=== PATIENT | female | born 1970 | race Two or more races ===

== ENCOUNTER 2021-04-13 22:06 | Emergency (ER) | payer SELFPAY ==
[2021-04-13] MEDS ORDERED: Sodium Chloride 0.9% 10 ML Syringe FLUSH PRN (22:58)
[2021-04-13] MEDS ORDERED: Ondansetron 4 MG/2 ML SDV IVPUSH ONE (22:58)
[2021-04-13] MEDS ORDERED: HYDROmorphone 0.5 MG/0.5 ML Syringe IVPUSH ONE (22:59)
[2021-04-13] MEDS ORDERED: Sodium Chloride 0.9% 1,000 ML IV SCH (23:00)
--- NOTE | 2021-04-14 00:55 | EDM.PDOC ---
ED HPI GENERAL MEDICAL PROBLEM - General Chief Complaint: Flank Pain Stated Complaint: LEFT SIDE PAIN/THROWING UP Time Seen by Provider: 04/13/21 22:40 Source of Information: Reports: Patient History Limitations: Reports: No Limitations - History of Present Illness INITIAL COMMENTS - FREE TEXT/NARRATIVE: The patient presents with left flank, abdominal pain, nausea and vomiting. This started about 7:30pm tonight. She has no history of kidney stones. She has no fever, chills, cough, chest pain, shortness of breath, dysuria, hematuria or diarrhea. She still has her appendix and gallbladder. Onset: Sudden Duration: Hour(s): Location: Reports: Abdomen, Back Quality: Reports: Sharp Severity: Severe Improves with: Reports: None Worsens with: Reports: None Associated Symptoms: Reports: Nausea/Vomiting. Denies: Chest Pain, Cough, Fever/Chills, Headaches, Shortness of Breath Left Flank Pain Score (Numeric/FACES): 7 - Related Data Allergies Allergy/AdvReac Type Severity Reaction Status Date / Time amoxicillin Allergy Airway Verified 04/13/21 22:35 Tightness Penicillins Allergy Swelling Verified 04/13/21 22:35 Home Meds: Home Meds Fluticasone Furoate [Arnuity Ellipta] 50 mcg IH ASDIRECTED 04/13/21 [History] Fluticasone/Vilanterol [Breo Ellipta 100-25 MCG Inhalation Kit] 1 each IH ASDIRECTED 04/13/21 [History] Loratadine [Claritin] 10 mg PO DAILY 04/13/21 [History] Meloxicam 75 mg PO DAILY 04/13/21 [History] estradioL [Estradiol] 1 tab PO DAILY 04/13/21 [History] lisinopriL [Lisinopril] 20 mg PO DAILY 04/13/21 [History] metFORMIN [Glucophage] 1,000 mg PO BIDMEALS 04/13/21 [History] traMADol [Ultram] 50 mg PO Q6H PRN 04/13/21 [History] Past Medical History HEENT History: Reports: None Cardiovascular History: Reports: Hypertension Respiratory History: Reports: Asthma Gastrointestinal History: Reports: Chronic Constipation Genitourinary History: Reports: None [employer]ESS[employer]MINISTRATION History: Reports: None Musculoskeletal History: Reports: Back Pain, Chronic Neurological History: Reports: None Psychiatric History: Reports: None Endocrine/Metabolic History: Reports: Diabetes, Type II Hematologic History: Reports: None Immunologic History: Reports: None Oncologic (Cancer) History: Reports: None Dermatologic History: Reports: None - Infectious Disease History Infectious Disease History: Reports: None - Past Surgical History HEENT Surgical History: Reports: None Social & Family History - Family History Family Medical History: No Pertinent Family History - Tobacco Use Tobacco Use Status *Q: Never Tobacco User - Caffeine Use Caffeine Use: Reports: Coffee, Soda - Recreational Drug Use Recreational Drug Use: No ED ROS GENERAL - Review of Systems Review Of Systems: See Below Constitutional: Reports: No Symptoms HEENT: Reports: No Symptoms Respiratory: Reports: No Symptoms Cardiovascular: Reports: No Symptoms Endocrine: Reports: No Symptoms GI/Abdominal: Reports: Abdominal Pain, Nausea, Vomiting. Denies: Diarrhea : Reports: No Symptoms Musculoskeletal: Reports: Other (left flank) ED EXAM, GI/ABD - Physical Exam Exam: See Below Exam Limited By: No Limitations General Appearance: Alert, No Apparent Distress Ears: Normal External Exam Nose: Normal Inspection Head: Atraumatic, Normocephalic Neck: Normal Inspection Respiratory/Chest: No Respiratory Distress, Lungs Clear, Normal Breath Sounds Cardiovascular: Regular Rate, Rhythm, No Edema, No Murmur GI/Abdominal Exam: Soft, No Organomegaly, No Mass, Tender (Moderate tenderness to the left flank and left abdomen) Back Exam: CVA Tenderness (L) Extremities: Normal Inspection Course - Vital Signs Last Recorded V/S: Last Vital Signs Temp 97.2 F 04/13/21 22:39 Pulse 99 04/13/21 22:39 Resp 16 04/13/21 22:39 BP 150/92 H 04/13/21 22:39 Pulse Ox 99 04/13/21 22:39 - Orders/Labs/Meds Orders: Active Orders 24 hr Category Date Time Status Peripheral IV Care [RC] . DIRECTED Care 04/13/21 22:58 Active Abdomen Pelvis wo Cont [CT] Stat Exams 04/13/21 22:58 Taken Sodium Chloride 0.9% [Normal Saline] 1,000 ml Med 04/13/21 23:00 Active IV ASDIRECTED Sodium Chloride 0.9% [Saline Flush] Med 04/13/21 22:58 Active 10 ml FLUSH ASDIRECTED PRN ED Antiemetic Medication Reflex [OM.PC] Stat Oth 04/13/21 22:58 Ordered Peripheral IV Insertion Adult [OM.PC] Stat Oth 04/13/21 22:58 Ordered Medication Orders Sodium Chloride (Normal Saline) 1,000 mls @ 125 mls/hr IV ASDIRECTED CATALINA Last Admin: 04/13/21 23:09 Dose: 125 mls/hr Documented by: JUAN Sodium Chloride (Sodium Chloride 0.9% 10 Ml Syringe) 10 ml FLUSH ASDIRECTED PRN PRN Reason: Keep Vein Open Last Admin: 04/13/21 23:11 Dose: 10 ml Documented by: JUAN Labs: Laboratory Tests 04/13/21 04/13/21 04/13/21 Range/Units 23:08 23:08 23:08 WBC 13.33 H (3.98-10.04) K/mm3 RBC 5.00 (3.98-5.22) M/mm3 Hgb 13.3 (11.2-15.7) gm/dl Hct 41.0 (34.1-44.9) % MCV 82.0 (79.4-94.8) fl MCH 26.6 (25.6-32.2) pg MCHC 32.4 (32.2-35.5) g/dl RDW Std Deviation 40.8 (36.4-46.3) fL Plt Count 291 (182-369) K/mm3 MPV 10.3 (9.4-12.3) fl Neut % (Auto) 78.7 H (34.0-71.1) % Lymph % (Auto) 13.5 L (19.3-51.7) % [place] % (Auto) 6.7 (4.7-12.5) % Eos % (Auto) 0.4 L (0.7-5.8) Baso % (Auto) 0.2 (0.1-1.2) % Neut # (Auto) 10.49 H (1.56-6.13) K/mm3 Lymph # (Auto) 1.80 (1.18-3.74) K/mm3 [place] # (Auto) 0.89 H (0.24-0.36) K/mm3 Eos # (Auto) 0.05 (0.04-0.36) K/mm3 Baso # (Auto) 0.03 (0.01-0.08) K/mm3 Sodium 139 (136-145) mEq/L Potassium 3.7 (3.5-5.1) mEq/L Chloride 103 (98-107) mEq/L Carbon Dioxide 26 (21-32) mEq/L Anion Gap 13.7 (5-15) BUN 16 (7-18) mg/dL Creatinine 0.7 (0.55-1.02) mg/dL Est Cr Clr Drug Dosing 83.03 mL/min Estimated GFR (MDRD) > 60 (>60) mL/min BUN/Creatinine Ratio 22.9 H (14-18) Glucose 160 H (70-99) mg/dL Calcium 8.8 (8.5-10.1) mg/dL Total Bilirubin 0.3 (0.2-1.0) mg/dL AST 11 L (15-37) U/L ALT 23 (14-59) U/L Alkaline Phosphatase 120 H (46-116) U/L Total Protein 7.1 (6.4-8.2) g/dl Albumin 3.6 (3.4-5.0) g/dl Globulin 3.5 gm/dL Albumin/Globulin Ratio 1.0 (1-2) Lipase 64 L (73-393) U/L HCG, Qual Negative (NEGATIVE) Urine Color (Yellow) Urine Appearance (Clear) Urine pH (5.0-8.0) Ur Specific [place] (1.005-1.030) Urine Protein (Negative) Urine Glucose (UA) (Negative) Urine Ketones (Negative) Urine Occult Blood (Negative) Urine Nitrite (Negative) Urine Bilirubin (Negative) Urine Urobilinogen (0.2-1.0) Ur Leukocyte Esterase (Negative) Urine RBC (0-5) /hpf Urine WBC (0-5) /hpf Ur Squamous Epith Cells (0-5) /hpf Urine Bacteria (FEW) /hpf Urine Mucus (FEW) /hpf 04/14/21 Range/Units 00:03 WBC (3.98-10.04) K/mm3 RBC (3.98-5.22) M/mm3 Hgb (11.2-15.7) gm/dl Hct (34.1-44.9) % MCV (79.4-94.8) fl MCH (25.6-32.2) pg MCHC (32.2-35.5) g/dl RDW Std Deviation (36.4-46.3) fL Plt Count (182-369) K/mm3 MPV (9.4-12.3) fl Neut % (Auto) (34.0-71.1) % Lymph % (Auto) (19.3-51.7) % [place] % (Auto) (4.7-12.5) % Eos % (Auto) (0.7-5.8) Baso % (Auto) (0.1-1.2) % Neut # (Auto) (1.56-6.13) K/mm3 Lymph # (Auto) (1.18-3.74) K/mm3 [place] # (Auto) (0.24-0.36) K/mm3 Eos # (Auto) (0.04-0.36) K/mm3 Baso # (Auto) (0.01-0.08) K/mm3 Sodium (136-145) mEq/L Potassium (3.5-5.1) mEq/L Chloride (98-107) mEq/L Carbon Dioxide (21-32) mEq/L Anion Gap (5-15) BUN (7-18) mg/dL Creatinine (0.55-1.02) mg/dL Est Cr Clr Drug Dosing mL/min Estimated GFR (MDRD) (>60) mL/min BUN/Creatinine Ratio (14-18) Glucose (70-99) mg/dL Calcium (8.5-10.1) mg/dL Total Bilirubin (0.2-1.0) mg/dL AST (15-37) U/L ALT (14-59) U/L Alkaline Phosphatase (46-116) U/L Total Protein (6.4-8.2) g/dl Albumin (3.4-5.0) g/dl Globulin gm/dL Albumin/Globulin Ratio (1-2) Lipase (73-393) U/L HCG, Qual (NEGATIVE) Urine Color Yellow (Yellow) Urine Appearance Clear (Clear) Urine pH 7.0 (5.0-8.0) Ur Specific [place] 1.025 (1.005-1.030) Urine Protein Negative (Negative) Urine Glucose (UA) 2+ H (Negative) Urine Ketones 1+ H (Negative) Urine Occult Blood Negative (Negative) Urine Nitrite Negative (Negative) Urine Bilirubin Negative (Negative) Urine Urobilinogen 0.2 (0.2-1.0) Ur Leukocyte Esterase Negative (Negative) Urine RBC 0-5 (0-5) /hpf Urine WBC 0-5 (0-5) /hpf Ur Squamous Epith Cells 0-5 (0-5) /hpf Urine Bacteria Few (FEW) /hpf Urine Mucus Few (FEW) /hpf Meds: Medications Generic Name Dose Route Start Last Admin Trade Name Freq PRN Reason Stop Dose Admin Sodium Chloride 1,000 mls @ 125 mls/hr 04/13/21 23:00 04/13/21 23:09 Normal Saline IV 125 mls/hr ASDIRECTED CATALINA Administration Sodium Chloride 10 ml 04/13/21 22:58 04/13/21 23:11 Sodium Chloride 0.9% 10 Ml Syringe FLUSH 10 ml ASDIRECTED PRN Administration Keep Vein Open Discontinued Medications Generic Name Dose Route Start Last Admin Trade Name Freq PRN Reason Stop Dose Admin Hydromorphone HCl 0.5 mg 04/13/21 22:59 04/13/21 23:09 Hydromorphone 0.5 Mg/0.5 Ml Syringe IVPUSH 04/13/21 23:00 0.5 mg ONETIME ONE Administration Ondansetron HCl 4 mg 04/13/21 22:58 04/13/21 23:11 Ondansetron 4 Mg/2 Ml Sdv IVPUSH 04/13/21 22:59 4 mg ONETIME ONE Administration - Re-Assessments/Exams Free Text/Narrative Re-Assessment/Exam: 04/14/21 00:52 I ordered an IV NS 1L bolus, zofran 4mg IV, dilaudid, labs, UA and a CT of her abdomen and pelvis without contrast. Her WBC was elevated at 13.33. Her glucose was elevated at 160. Her alk phos was elevated at 120. Her lipase was low. Her HCG is negative. Her UA shows no UTI. Her CT shows etiology fore acute onset left flank pain is not identified. No stone or hydronephrosis present. Left adrenal adenoma. Mild colonic diverticulosis without evidence for active diverticulitis. 04/14/21 00:57 I feel she may have a viral gastroenteritis. I will get her zofran and something for pain. Departure - Departure Time of Disposition: 00:55 Disposition: Home, Self-Care 01 Condition: Good Clinical Impression: Viral gastroenteritis - Discharge Information *PRESCRIPTION DRUG MONITORING PROGRAM REVIEWED*: Not Applicable *COPY OF PRESCRIPTION DRUG MONITORING REPORT IN PATIENT RYLAN: Not Applicable Referrals: PCP,Not In Area [Primary Care Provider] - Maxine Nunez, [employer] MECH[employer]IC APPRENTICE [Nurse Practitioner] - 1 Week Forms: ED Department Discharge Additional Instructions: Drink plenty of fluids. Take zofran every 6 hours as needed for nausea and vomiting. Take tylenol or motrin as needed for pain. If that does not help, try the hydrocodone. Follow up with Maxine Nunez in our clinic within a week. Please return if you are worse. Sepsis Event Note (ED) - Evaluation Sepsis Screening Result: No Definite Risk - Focused Exam Vital Signs: Vital Signs Temp Pulse Resp BP Pulse Ox 04/13/21 22:39 97.2 F 99 16 150/92 H 99 - My Orders Last 24 Hours: My Active Orders 04/13/21 22:58 Peripheral IV Care [RC] . DIRECTED Abdomen Pelvis wo Cont [CT] Stat Sodium Chloride 0.9% [Saline Flush] 10 ml FLUSH ASDIRECTED PRN ED Antiemetic Medication Reflex [OM.PC] Stat Peripheral IV Insertion Adult [OM.PC] Stat 04/13/21 23:00 Sodium Chloride 0.9% [Normal Saline] 1,000 ml IV ASDIRECTED - Assessment/Plan Last 24 Hours: My Active Orders 04/13/21 22:58 Peripheral IV Care [RC] . DIRECTED Abdomen Pelvis wo Cont [CT] Stat Sodium Chloride 0.9% [Saline Flush] 10 ml FLUSH ASDIRECTED PRN ED Antiemetic Medication Reflex [OM.PC] Stat Peripheral IV Insertion Adult [OM.PC] Stat 04/13/21 23:00 Sodium Chloride 0.9% [Normal Saline] 1,000 ml IV ASDIRECTED
--- NOTE | 2021-04-14 07:56 | CT ---
CT abdomen and pelvis Technique: Multiple axial sections were obtained from above the dome of the diaphragm inferiorly through the pubic symphysis. Intravenous and oral contrast were not utilized. Reconstructed coronal and sagittal images were obtained. Findings: Right and left kidneys show no abnormal calcifications. Small fatty lesion is noted within the left kidney measuring approximately 7 mm. This is compatible with a small angiomyolipoma. No ureteral dilatation is seen. No ureteral calculi are seen. Visualized lung bases show nothing acute. Noncontrast appearance of the liver shows no discrete abnormality. Spleen size is normal. Minimal soft tissue nodule is noted next to the spleen which I believe represents a colonic diverticulum. Low density lesion is seen within the left adrenal gland. This finding measures approximately 1.7 cm in size and is felt compatible with a benign adrenal adenoma. Right adrenal gland appears normal. Gallbladder contains no calcified gallstones. Abdominal aorta shows no aneurysm. No retroperitoneal adenopathy or mesenteric abnormalities are seen. Minimal fat-containing umbilical hernia is noted. No pelvic mass or adenopathy is identified. Two minimal cysts are seen within the left adnexa which are felt to be physiologic. Minimal diverticulosis is seen scattered within the colon. No inflammatory change is appreciated. Bone window settings were reviewed which show no acute osseous abnormality. Appendix is not visualized with certainty. Impression: 1. Small angiomyolipoma within the left kidney. No renal calculi, no ureteral dilatation or ureteral calculi are seen. 2. Small adrenal adenoma on the left side. 3. Mild scattered colonic diverticuli with no inflammatory change of diverticulitis. 4. Nothing acute is identified on noncontrast CT study of the abdomen and pelvis. Diagnostic code #2 I agree with preliminary report from [facility] finalized on 04/14/21, 1:42 AM CDT, code 1
== END 2021-04-14 01:24 | disposition home or self-care (01) ==
LOC: JD.ED 22:06
DX: A08.4 Viral intestinal infection, unspecified (principal); I10 Essential (primary) hypertension; E11.9 Type 2 diabetes mellitus without complications; Z88.0 Allergy status to penicillin; Z79.84 Long term (current) use of oral hypoglycemic drugs; Z79.899 Other long term (current) drug therapy
CPT/HCPCS: 36415; 74176; 80053; 81001; 83690; 84703; 85025; 96374; 96375; 99284; J1170; J2405; J7030